=== PATIENT | male | born 1990 | race Two or more races ===

== ENCOUNTER 2018-06-26 17:19 | Observation (INO) | payer OTHER ==
[~2018-06-26] VITALS: Ht 177.8 cm; Wt 81.0 kg
[~2018-06-26 17:19] MED LIST: CEFAZOLIN 1,000 MG ONE; DEXAMETHASONE 4 MG/ML, 1ML ONE; KETOROLAC 30 MG/1 ML ONE; ONDANSETRON 2MG/ML, 2ML ONE; PROPOFOL 10 MG/ML, 20ML ONE; ROCURONIUM 10MG/ML,5ML ONE; SUCCINYLCHOLINE 20 MG/ML, 10ML ONE
[2018-06-26] MEDS ORDERED: SODIUM CHLORIDE FLUSH 10ML SYR IVF ONE (18:00)
[2018-06-26 18:04] LABS: MICROSCOPIC NOT IND
[2018-06-26 18:06] LABS: CULTURE INDICATED? NO
--- NOTE | 2018-06-26 18:10 | NUR ---
erp to the bs at this time
[2018-06-26 18:17] LABS: BASOPHILS # (AUTO) 0.08 x10^3/uL (0-0.1); BASOPHILS % (AUTO) 1 % (0-1); EOSINOPHILS # (AUTO) 0.18 x10^3/uL (0-0.4); EOSINOPHILS % (AUTO) 1 % (1-7); LYMPHOCYTES # (AUTO) 1.53 x10^3/uL (1-3.4); LYMPHOCYTES % (AUTO) 9 % (22-44); MD NO; MEAN CORPUSCULAR HGB CONC 34.9 g/dL (33.2-36.2); MEAN CORPUSCULAR VOLUME 88.9 fL (81-97); MEAN PLATELET VOLUME 8.1 fL (7.4-10.4); MONOCYTES # (AUTO) 0.82 x10^3/uL (0.2-0.8); MONOCYTES % (AUTO) 5 % (2-9); NEUTROPHILS # (AUTO) 13.71 x10^3/uL (1.8-6.8); NEUTROPHILS % (AUTO) 84 % (42-75); PLATELET COUNT 234 x10^3/uL (130-400); RED BLOOD COUNT 5.61 x10^6/uL (4.38-5.82); RED CELL DISTRIBUTION WIDTH 13.3 % (9.4-14.8)
[2018-06-26 18:27] LABS: ANION GAP 7 mmol/L (5-15); CALCIUM 9.7 mg/dL (8.5-10.1); CHLORIDE 106 mmol/L (98-107)
[2018-06-26 18:31] LABS: ALANINE AMINOTRANSFERASE 29 U/L (12-78); ALKALINE PHOSPHATASE 56 U/L (45-117); BILIRUBIN,TOTAL 0.8 mg/dL (0.2-1.0); CREATININE 0.94 mg/dL (0.7-1.3); TOTAL PROTEIN 8.2 g/dL (6.4-8.2)
--- NOTE | 2018-06-26 18:55 | NUR ---
RECEIVED REPORT FROM DEE DEE CASTELLON TO ASSUME PT. CARE AT THIS TIME.
[2018-06-26] MEDS ORDERED: OMNIPAQUE 350 MG/ML, 100ML BOTTLE ONE (18:58)
[2018-06-26] MEDS ORDERED: SODIUM CHLORIDE 0.9% 1,000 ML IV ONE (19:30)
[2018-06-26] MEDS ORDERED: MORPHINE SULFATE 4 MG/ML, 1ML IVPush PRN (19:30)
--- NOTE | 2018-06-26 19:58 | NUR ---
REPORT TO OR.
--- NOTE | 2018-06-26 20:00 | NUR ---
REPORT TO FLOOR RN. PT. TO GO TO OR IN ABOUT 15 MINUTES PER OR STAFF THEN TO FLOOR AFTER.
[2018-06-26] MEDS ORDERED: BUPIVACAINE/PF-EPI 0.5% 1:200K ONE (20:51)
[2018-06-26] MEDS ORDERED: FENTANYL PF 100 MCG/2ML ONE ×2 (20:57→21:46)
[2018-06-26] MEDS ORDERED: BUPIVACAINE/PF-EPI 0.5% 1:200K IM ONE (20:58)
[2018-06-26] MEDS ORDERED: MEPERIDINE/PF 25MG/ML,1ML ONE ×2 (22:01→22:14)
[2018-06-26] MEDS ORDERED: PROMETHAZINE 25 MG/ML, 1ML ONE (22:05)
[2018-06-26] MEDS: MEPERIDINE/PF 25MG/0.5ML IVPush PRN ×2 (22:05→22:20)
[2018-06-26] MEDS ORDERED: morphine SULFATE 10 MG/ML, 1ML ONE (22:14)
[2018-06-26] MEDS ORDERED: PROCHLORPERAZINE 5 MG/ML, 2ML ONE (22:20)
[2018-06-26] MEDS ORDERED: HALOPERIDOL 5 MG/ML ONE (22:28)
[2018-06-26] MEDS ORDERED: LABETALOL 5MG/ML, 20ML IV PRN (22:30)
[2018-06-26] MEDS ORDERED: PROCHLORPERAZINE 5 MG/ML, 2ML IV PRN (22:30)
[2018-06-26] MEDS ORDERED: HALOPERIDOL 5 MG/ML IV PRN (22:30)
[2018-06-26] MEDS ORDERED: HYDROmorphone 2 MG/ML, 1ML IVPush PRN (22:30)
[2018-06-26] MEDS ORDERED: hydrALAzine 20 MG/ML, 1ML IV PRN (22:30)
[2018-06-26] MEDS ORDERED: PROMETHAZINE 25 MG/ML, 1ML IV PRN (22:30)
[2018-06-26] MEDS ORDERED: DIPHENHYDRAMINE 50 MG/ML, 1ML IVPush PRN (22:30)
[2018-06-26] MEDS ORDERED: METOPROLOL 1 MG/ML, 5ML IV PRN (22:30)
[2018-06-26] MEDS ORDERED: OXYcodone 5 MG/5 ML ORAL.SOL UDC PO PRN (22:30)
[2018-06-26] MEDS ORDERED: FENTANYL PF 100 MCG/2ML IV PRN (22:30)
[2018-06-26 23:19] VITALS: BP 135/65
[2018-06-26] MEDS ORDERED: ACETAMINOPHEN 500 MG TABLET PO SCH (23:45)
[2018-06-26] MEDS ORDERED: ONDANSETRON ODT 4 MG PO PRN (23:45)
[2018-06-26] MEDS ORDERED: PROMETHAZINE 25MG TABLET PO PRN (23:45)
[2018-06-26] MEDS ORDERED: HYDROmorphone 2 MG/ML, 1ML IV PRN (23:45)
[2018-06-26] MEDS ORDERED: ONDANSETRON 2MG/ML, 2ML IV PRN (23:45)
[2018-06-26] MEDS ORDERED: OXYcodone IR 5MG TABLET PO PRN (23:45)
[2018-06-27 00:03] VITALS: BP 132/84
[2018-06-27] MEDS: IBUPROFEN 600 MG TABLET PO SCH ×2 (00:22→05:51)
[2018-06-27] MEDS: SODIUM CHLORIDE 0.9% 1,000 ML IV SCH ×2 (00:23→08:30)
[2018-06-27] MEDS: ACETAMINOPHEN 500 MG TABLET PO SCH ×2 (03:20→09:40)
[2018-06-27 03:58] VITALS: BP 131/74
[2018-06-27 07:34] VITALS: BP 112/69
[2018-06-27] MEDS ORDERED: OXYC5TAB3 PO (10:10)
== END 2018-06-27 10:25 | disposition home or self-care (01) ==
LOC: ED 19:35 → INTOOBSV 19:40 → EDIP 19:40 → 4NOR 23:07 → DCLOUNGE 06-27 10:07
PROVIDERS: ADMIT Surgery; ATTEND Surgery
DX: K35.80 Unspecified acute appendicitis (principal)
CPT/HCPCS: 36415; 44970; 74177; 80053; 81003; 85025; 88304; 99284; G0378; J0330; J0690; J1100; J1885; J2175; J2405; J2550; J2704; J3010; J7030; Q9967